=== PATIENT | male | born 1975 | race Caucasian/White ===

== ENCOUNTER 2020-03-16 15:49 | Emergency (ER) | payer OTHER ==
[~2020-03-16] VITALS: Ht 172.7 cm; Wt 79.4 kg
[2020-03-16] MEDS ORDERED: NORVASC10 MG PO (16:03)
[2020-03-16] MEDS ORDERED: BIKTARVY 50-201 EACH PO (16:03)
[2020-03-16] MEDS ORDERED: BUPROPION XL300 MG PO (16:03)
[2020-03-16] MEDS ORDERED: LIPITOR 20 MG T20 M1 PO (16:03)
[2020-03-16] MEDS ORDERED: HYDROCODON-ACE1 EAC7 PO (17:31)
[2020-03-16 17:50] VITALS: BP 167/98
== END 2020-03-16 17:52 | disposition home or self-care (01) ==
LOC: M.ERS 15:49
DX: S43.102A Unspecified dislocation of left acromioclavicular joint, initial encounter (principal); I10 Essential (primary) hypertension; E78.00 Pure hypercholesterolemia, unspecified; F17.210 Nicotine dependence, cigarettes, uncomplicated; V89.2XXA Person injured in unspecified motor-vehicle accident, traffic, initial encounter; Y93.89 Activity, other specified; Y92.89 Other specified places as the place of occurrence of the external cause; Y99.8 Other external cause status

== ENCOUNTER 2021-01-23 06:43 | Emergency (ER) | payer OTHER ==
[~2021-01-23] VITALS: Ht 172.7 cm; Wt 49.9 kg
[~2021-01-23 06:43] MED LIST: BIKTARVY 50-201 EACH PO; BUPROPION XL300 MG PO; HYDROCODON-ACE1 EAC7 PO; LIPITOR 20 MG T20 M1 PO; NORVASC10 MG PO
[2021-01-23 08:52] LABS: ABSOLUTE LYMPHOCYTES 1.5 thou/uL (0.8-5.3); ABSOLUTE MONOCYTES 1.3 thou/uL (0.0-1.2); ABSOLUTE NEUTROPHILS 14.5 thou/uL (1.6-8.1); BASOPHILS 0.2 %; EOSINOPHILS 0.3 %; HEMATOCRIT 43.5 % (42.0-52.0); HEMOGLOBIN 14.8 gm/dL (14.0-18.0); LYMPHOCYTES 8.9 %; MCHC 33.9 g/dL (28.0-37.0); MCV 94.4 fL (80.0-100.0); MONOCYTES 7.7 %; MPV 7.1 fl. (7.2-11.1); NUCLEATED RBCS 0 /100WBC; PLATELET COUNT* 198 thou/uL (150-400); POLYS 82.9 %; RBC 4.61 mil/uL (4.50-6.00); RDW-CV 13.6 % (10.5-14.5); WBC 17.4 thou/uL (4.0-11.0)
[2021-01-23 08:56] LABS: CALCIUM 8.5 mg/dL (8.5-10.1); POTASSIUM 3.6 mmol/L (3.5-5.1)
[2021-01-23 09:01] LABS: ALBUMIN 3.6 g/dL (3.4-5.0); TOTAL BILIRUBIN 0.7 mg/dL (<0.1-1.0); TOTAL PROTEIN 7.5 g/dL (6.4-8.2)
[2021-01-23] MEDS ORDERED: DOXYCYCLINE 10100 MG PO (09:59)
[2021-01-23] MEDS ORDERED: HYDROCODON-ACE1 EAC7 PO (09:59)
[2021-01-23 10:07] VITALS: BP 148/89
[2021-01-23 10:20] LABS: PLATELET ESTIMATE ADEQUATE
== END 2021-01-23 10:07 | disposition home or self-care (01) ==
LOC: M.ERS 06:43
PROVIDERS: Family Medicine
DX: N45.1 Epididymitis (principal); I10 Essential (primary) hypertension; Z21 Asymptomatic human immunodeficiency virus [HIV] infection status; E78.00 Pure hypercholesterolemia, unspecified; Z79.899 Other long term (current) drug therapy